=== PATIENT | male | born 2000 | race Hispanic/Latino ===

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

== ENCOUNTER 2021-09-24 22:26 | Emergency (ER) | payer SELFPAY | END 2021-09-24 23:22 | disposition home or self-care (01) | LOC: ERS 22:26 | DX: H92.01 Otalgia, right ear (principal) | CPT/HCPCS: 99282 ==